=== PATIENT | male | born 1940 | race Caucasian/White ===

== ENCOUNTER 2016-11-26 22:21 | Emergency (ER) | payer OTHER ==
[~2016-11-26] VITALS: Ht 162.6 cm; Wt 65.0 kg
[~2016-11-26 22:21] MED LIST: 1-ME1LIQ PO; ALPR0.5T3 PO; ASPI81 PO; CLOP75 PO; CYCL1PAK PO; DULERA INHALER INH; FAMO1TAB36 PO; METO50TA PO; MEVA40TA PO; NEXI40CA PO; NITR.4 SL; PRIM50TA PO; SPIRCAP INH
[2016-11-26 22:25] VITALS: BP 160/72; PULSE 54; RESP 18; TEMP 98; O2SAT 99
[2016-11-26] MEDS ORDERED: LIDOCAINE HCL 1% 50 ML VIAL ONE (22:47)
[2016-11-26] MEDS ORDERED: LIDOCAINE 1%/EPINEPHrine 1:100,000 SOLN 30 ML VIAL ONE (22:49)
--- NOTE | 2016-11-26 23:31 | PD ---
HPI Chief Complaint: Laceration/Skin Injury Time Seen by Provider: 23:13 Travel History International Travel<30 days: No Contact w/Intl Traveler<30days: No Traveled to known affect area: No History of Present Illness HPI 76-year-old white male presents to emergency department with a laceration to his right lower leg from a piece of porcelain which occurred a few hours prior to arrival. The patient denies any numbness or tingling. He is up-to-date with immunizations. Pain is mild. He states the lesion has been persistently bleeding he is on Plavix. PFSH Past Medical History Arthritis: Yes Blood Disorders: No Anxiety: Yes Depression: Yes Heart Rhythm Problems: Yes Cancer: No Cardiovascular Problems: Yes (htn) High Cholesterol: Yes Chemotherapy: No Chest Pain: Yes COPD: Yes Cerebrovascular Accident: No Coronary Artery Disease: Yes Diabetes: No Endocrine: No Gastrointestinal Disorders: Yes GERD: Yes Glaucoma: No Genitourinary: No Hepatitis: No Hiatal Hernia: No Hypertension: Yes Immune Disorder: No Implanted Vascular Access Dvce: Yes Medical other: No Musculoskeletal: Yes Neurologic: Yes Psychiatric: Yes Reproductive: No Respiratory: Yes Immunizations Current: Yes Myocardial Infarction: Yes Radiation Therapy: No Thyroid Disease: No Tetanus Vaccination: < 5 Years Influenza Vaccination: Yes Past Surgical History AICD: No Arteriovenous Shunt: No Body Medical Devices: VASCULAR GRAFTS LEGS Cardiac Surgery: Yes (4 VESSEL BYPASS 2008) Coronary Artery Bypass Graft: Yes Eye Surgery: Yes ("SIMPLE EYE SX") Insulin Pump: No Joint Replacement: No Pacemaker: No Other Surgery: Yes Social History Alcohol Use: No Tobacco Use: No (QUIT 1991) Substance Use: No Allergies-Medications (Allergen,Severity, Reaction): Coded Allergies: No Known Allergies (Verified , 11/26/16) Reported Meds & Prescriptions Reported Meds & Active Scripts Active Review of Systems Except as stated in HPI: all other systems reviewed are Neg Physical Exam Narrative GENERAL: This is a well-nourished, well-developed patient, in no apparent distress. SKIN: No rashes, ecchymoses or lesions. Warm and dry. HEAD: Atraumatic. Normocephalic. EYES: PERRL, EOMI, no discharge or injection. No scleral icterus. EARS: Clear NOSE: Nasal turbinates appear normal. THROAT: Mucosa pink and moist. Airway patent. NECK: Trachea midline. supple, moves head freely. LUNGS: Clear to auscultation. CV: Regular in rhythm. ABDOMEN: Soft nontender. EXT: No clubbing cyanosis or edema. Patient has a 1.5 cm avulsion laceration to the medial right lower leg. Patient has venous bleeding. No foreign body. Neurovascular intact. Data Data Last Documented VS Vital Signs Date Time Temp Pulse Resp B/P (MAP) Pulse Ox O2 Delivery O2 Flow Rate FiO2 11/26/16 22:25 98.0 54 18 160/72 (101) 99 Room Air Orders Orders Lidocaine 1% Inj (50 Ml) (Xylocaine 1% I (11/26/16 22:47) Lidocai-Epi 1%-1:100,000 Inj (Xylocaine- (11/26/16 22:49) MDM Medical Decision Making Medical Screen Exam Complete: Yes Emergency Medical Condition: Yes Medical Record Reviewed: Yes Differential Diagnosis MDM: High Differential diagnoses: Fracture, sprain, strain, dislocation, contusion, neurovascular injury Narrative Course Patient lacerations closer sutures. Procedures Procedure Narrative LACERATION LOCATION: Right lower leg medial aspect LENGTH: 1.5 cm NUMBER OF STITCHES/MASON: 3 REPAIR: The area of the laceration was prepped with Betadine and sterilely draped. The laceration was infiltrated with 1% lidocaine with epinephrine. The wound was copiously irrigated and explored without evidence of foreign body , tendon injury or neurovascular injury. The wound was closed using 4-0 proline. This was a simple single layer repair. A sterile dressing was applied. The patient was advised to keep the dressing clean and dry. Patient tolerated the procedure well. Diagnosis Primary Impression: Laceration of right lower leg Qualified Codes: S81.811A - Laceration without foreign body, right lower leg, initial encounter Patient Instructions: General Instructions Additional Instructions: Rest. Elevation. Tylenol and Advil for pain. Daily wound care with soap, water, Neosporin. Sutures out in 9 days. Return to the ER if any problems. Med/Other Pt SpecificInfo: Wound Care Disposition: DISCHARGE HOME Condition: Stable Hitesh Dickens Nov 26, 2016 23:31
== END 2016-11-27 00:32 | disposition home or self-care (01) ==
LOC: NEPD 22:21
DX: S81.811A Laceration without foreign body, right lower leg, initial encounter (principal); I10 Essential (primary) hypertension; E78.00 Pure hypercholesterolemia, unspecified; I25.2 Old myocardial infarction; W26.8XXA Contact with other sharp object(s), not elsewhere classified, initial encounter; Z79.01 Long term (current) use of anticoagulants; Z87.39 Personal history of other diseases of the musculoskeletal system and connective tissue; Z86.59 Personal history of other mental and behavioral disorders; Z86.79 Personal history of other diseases of the circulatory system; Z87.09 Personal history of other diseases of the respiratory system; Z87.19 Personal history of other diseases of the digestive system; Z86.69 Personal history of other diseases of the nervous system and sense organs
CPT/HCPCS: 12001